=== PATIENT | male | born 1945 | race Caucasian/White ===

== ENCOUNTER 2018-07-01 15:27 | Outpatient (CLI) | payer MEDICARE ==
--- NOTE | 2018-07-01 16:44 | RAD ---
LEFT GREAT TOE THREE VIEWS: 07/01/2018 HISTORY: Osteoarthritis, left great toe, at the level of the metatarsophalangeal joint. FINDINGS: There is osteoarthritis involving the interphalangeal joint of the left great toe, with joint space n arrowing and osteophytes, as well as subchondral sclerosis present. No fracture is seen, and there i s no dislocation seen. There is a corticated osseous density seen just dorsal to the base of the pro ximal phalanx of the great toe, which may be related to prior fracture of an osteophyte in this regio n and related to the degenerative changes. IMPRESSION: 1. No acute osseous abnormality, left great toe. 2. Osteoarthritis, metatarsophalangeal joint, left great toe. POS: LISA
== END 2018-07-01 15:28 | disposition home or self-care (01) ==
LOC: BICRAD 15:27
PROVIDERS: ATTEND Podiatrist
DX: M19.072 Primary osteoarthritis, left ankle and foot (principal)

== ENCOUNTER 2022-05-16 17:30 | Outpatient (CLI) | payer MEDICARE | END 2022-05-16 17:31 | disposition home or self-care (01) | LOC: SLEEPLAB 17:30 | PROVIDERS: ATTEND Internal Medicine Critical Care Medicine | DX: G47.33 Obstructive sleep apnea (adult) (pediatric) (principal); R06.83 Snoring; G47.00 Insomnia, unspecified | CPT/HCPCS: 95800 ==

== ENCOUNTER 2023-03-25 08:01 | Outpatient (CLI) | payer MEDICARE | END 2023-03-25 08:02 | disposition home or self-care (01) | LOC: CT 08:01 | PROVIDERS: ATTEND Internal Medicine Hematology & Oncology | DX: C18.1 Malignant neoplasm of appendix (principal); N28.89 Other specified disorders of kidney and ureter; R90.89 Other abnormal findings on diagnostic imaging of central nervous system; Z98.890 Other specified postprocedural states; Z90.49 Acquired absence of other specified parts of digestive tract | CPT/HCPCS: 71260; 74177 ==

== ENCOUNTER 2024-01-19 07:33 | Outpatient (CLI) | payer MEDICARE, OTHER ==
[2024-01-19] MEDS ORDERED: Iopamidol 370 76% 100 ML VIAL ONE (10:46)
== END 2024-01-19 07:34 | disposition home or self-care (01) ==
LOC: BICCT 07:33
PROVIDERS: ATTEND Internal Medicine Hematology & Oncology
DX: C18.1 Malignant neoplasm of appendix (principal); N28.0 Ischemia and infarction of kidney; N28.89 Other specified disorders of kidney and ureter; K76.0 Fatty (change of) liver, not elsewhere classified; I72.3 Aneurysm of iliac artery; I81 Portal vein thrombosis; Z90.5 Acquired absence of kidney
CPT/HCPCS: 71260; 74177; 82565; Q9967

== ENCOUNTER 2025-02-17 08:45 | Outpatient (CLI) | payer MEDICARE, OTHER | END 2025-02-17 08:46 | disposition home or self-care (01) | LOC: PET 08:45 | PROVIDERS: ATTEND Nurse Practitioner Family | DX: C64.1 Malignant neoplasm of right kidney, except renal pelvis (principal); C64.2 Malignant neoplasm of left kidney, except renal pelvis; C18.1 Malignant neoplasm of appendix; D50.0 Iron deficiency anemia secondary to blood loss (chronic); Z96.89 Presence of other specified functional implants | CPT/HCPCS: 78815; A9552 ==